=== PATIENT | female | born 1980 ===

== ENCOUNTER 2018-01-25 10:04 | Outpatient (CLI) | payer MEDICAID ==
--- NOTE | 2018-01-25 10:48 | XRay Report ---
Bilateral wrist: History: Wrist pain. Findings: No bony or articular. No fracture dislocation or soft tissue calcification. Impression: Essentially negative right and left wrist.
== END 2018-01-25 10:05 | disposition home or self-care (01) ==
LOC: SPVIMAG 10:04
PROVIDERS: ATTEND Orthopaedic Surgery Sports Medicine
DX: M25.531 Pain in right wrist (principal); M25.532 Pain in left wrist